=== PATIENT | female | born 1950 | race American Indian/Alaskan Native ===

== ENCOUNTER 2017-10-09 15:15 | Emergency (ER) | payer MEDICARE, OTHER ==
[2017-10-09 15:23] VITALS: BP 154/89
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
[2017-10-09] MEDS ORDERED: MOTRIN PO ONE (16:57)
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
== END 2017-10-09 20:54 | disposition home or self-care (01) ==
LOC: ED 15:15
DX: S16.1XXA Strain of muscle, fascia and tendon at neck level, initial encounter (principal); M54.5 Low back pain; M25.552 Pain in left hip; M51.37 Other intervertebral disc degeneration, lumbosacral region; V49.49XA Driver injured in collision with other motor vehicles in traffic accident, initial encounter; Y93.89 Activity, other specified; Y92.89 Other specified places as the place of occurrence of the external cause; Y99.8 Other external cause status
CPT/HCPCS: 72040; 72100; 99283